=== PATIENT | female | born 1955 | race Caucasian/White ===

== ENCOUNTER 2022-09-26 13:33 | Emergency (ER) | payer MEDICARE | END 2022-09-26 16:28 | disposition home or self-care (01) | LOC: CSHERS 13:33 | DX: J18.9 Pneumonia, unspecified organism (principal) | CPT/HCPCS: 71045 ==

== ENCOUNTER 2023-05-10 13:16 | Outpatient (CLI) | payer MEDICARE | END 2023-05-10 13:17 | disposition home or self-care (01) | LOC: CSHMAMMO 13:16 | PROVIDERS: ATTEND Student in an Organized Health Care Education/Training Program | DX: Z12.31 Encounter for screening mammogram for malignant neoplasm of breast (principal) | CPT/HCPCS: 77063; 77067 ==

== ENCOUNTER 2023-11-22 15:30 | Outpatient (CLI) | payer MEDICARE | END 2023-11-22 15:31 | disposition home or self-care (01) | LOC: CSHMAMMO 15:30 | PROVIDERS: ATTEND Nurse Practitioner Family | DX: Z13.820 Encounter for screening for osteoporosis (principal); M85.89 Other specified disorders of bone density and structure, multiple sites; Z78.0 Asymptomatic menopausal state | CPT/HCPCS: 77080 ==